=== PATIENT | male | born 1975 | race African-American/Black ===

== ENCOUNTER 2019-01-07 14:49 | Emergency (ER) | payer BC ==
[~2019-01-07] VITALS: Ht 182.9 cm; Wt 110.0 kg
[2019-01-07] MEDS ORDERED: ACETAMINOPHEN 325MG TABLET PO ONE (16:00)
[2019-01-07 17:00] VITALS: BP 172/88
[2019-01-07] MEDS ORDERED: KETOROLAC 60MG/2ML VIAL IM ONE (17:15)
== END 2019-01-07 17:55 | disposition home or self-care (01) ==
LOC: ER 14:49
DX: S09.8XXA Other specified injuries of head, initial encounter (principal); S16.1XXA Strain of muscle, fascia and tendon at neck level, initial encounter; J45.909 Unspecified asthma, uncomplicated; Z88.5 Allergy status to narcotic agent; V43.62XA Car passenger injured in collision with other type car in traffic accident, initial encounter; Y93.89 Activity, other specified; Y92.488 Other paved roadways as the place of occurrence of the external cause
CPT/HCPCS: 70450; 72125; 96372; 99284; J1885